=== PATIENT | male | born 1955 | race Caucasian/White ===

== ENCOUNTER 2016-10-06 07:16 | Day surgery (SDC) | payer MEDICARE, MEDICAID ==
[~2016-10-06] VITALS: Ht 172.7 cm; Wt 54.0 kg
[2016-10-06] MEDS: MIDAZOLAM HCL 5 MG/5 ML VIAL ONE ×4 (08:41→08:52)
[2016-10-06] MEDS: fentaNYL CITRATE/PF 100 MCG/2 ML AMP ONE ×3 (08:41→08:48)
[2016-10-06] MEDS ORDERED: DIPHENHYDRAMINE INJ 50 MG/ML VIAL ONE (09:01)
[2016-10-06] MEDS ORDERED: SIMETHICONE 40 MG/0.6 ML ML ONE (12:49)
[2016-10-06 13:02] VITALS: BP_SYST 99
== END 2016-10-06 10:30 | disposition home or self-care (01) ==
LOC: SDS 07:16 → SMU 07:26 → SDS 10:30
PROVIDERS: ATTEND Internal Medicine
DX: K51.90 Ulcerative colitis, unspecified, without complications (principal); K57.30 Diverticulosis of large intestine without perforation or abscess without bleeding; E78.5 Hyperlipidemia, unspecified
CPT/HCPCS: 45380; 88307; J1200; J2250; J3010; J7030

== ENCOUNTER 2020-07-29 10:00 | Outpatient (CLI) | payer MEDICARE, MEDICAID, SELFPAY | END 2020-07-29 11:00 | disposition home or self-care (01) | LOC: SLB 10:00 → EDSTATUS 08-02 09:00 | PROVIDERS: ATTEND Internal Medicine | DX: Z01.812 Encounter for preprocedural laboratory examination (principal); Z20.822 Contact with and (suspected) exposure to COVID-19; K51.90 Ulcerative colitis, unspecified, without complications | CPT/HCPCS: U0003 ==